=== PATIENT | female | born 1970 | race Caucasian/White ===

== ENCOUNTER 2023-10-17 10:27 | Inpatient (IN) | payer OTHER ==
[~2023-10-17] VITALS: Ht 160 cm; Wt 59.0 kg
[2023-10-17 10:31] VITALS: BP 127/78; PULSE 100; RESP 18; TEMP 98.4; O2SAT 100
[2023-10-17] MEDS: NACL 0.9% 1,000 ML IV ONE (10:45)
[2023-10-17] MEDS: KETOROLAC 30 MG/ML VIAL IVP ONE (10:47)
[2023-10-17 11:04] LABS: BASOPHILS % (AUTO) 0.1 % (0.0-2.0); HEMATOCRIT 42.7 % (36-48); HEMOGLOBIN 14.2 g/dL (12.0-16.0); LYMPHOCYTES # (AUTO) 0.7 K/uL (2.5-16.5); MEAN CORPUSCULAR HEMOGLOBIN 28 pg (27-31); MEAN CORPUSCULAR HGB CONC 33 g/dL (33-37); MEAN CORPUSCULAR VOLUME 85.1 fL (80-94); MONOCYTES # (AUTO) 0.4 K/uL (0.8-1.0); MONOCYTES % (AUTO) 3.2 % (1.7-9.3); NEUTROPHILS # (AUTO) 10.8 K/uL (1.8-7.7); NEUTROPHILS % (AUTO) 90.7 % (42.2-75.2); PLATELET COUNT (AUTO) 345 K/uL (140-450); RED BLOOD CELL COUNT(AUTO) 5.02 MIL/uL (4.20-5.40); RED CELL DISTRIBUTION WIDTH 14.4 % (11.6-13.7); WHITE BLOOD COUNT (AUTO) 11.9 K/uL (4.8-10.8)
[2023-10-17 11:16] LABS: ANION GAP 20.7 (8-16); CALCIUM 9.3 mg/dL (8.5-10.1); CARBON DIOXIDE 20.4 mmol/L (21-32); CREATININE 1.1 mg/dL (0.6-1.3); POTASSIUM 4.1 mmol/L (3.5-5.1)
[2023-10-17 11:26] LABS: ALANINE AMINOTRANSFERASE 24 U/L (12-78); ALBUMIN 3.8 g/dL (3.4-5.0); ALKALINE PHOSPHATASE 81 U/L (50-136); ASPARTATE AMINOTRANSFERASE 15 U/L (15-37); BILIRUBIN,DIRECT 0.2 mg/dL (0.0-0.3); LIPASE 22 U/L (16-77); TOTAL BILIRUBIN 1.3 mg/dL (0.0-1.0); TOTAL PROTEIN, SERUM 8.8 g/dL (6.4-8.2)
[2023-10-17 11:34] LABS: APPEARANCE,URINE CLEAR (CLEAR); BILIRUBIN,URINE NEGATIVE (NEGATIVE); BLOOD, URINE TRACE-I (NEGATIVE); COLOR,URINE YELLOW (YELLOW); LEUKOCYTE ESTERASE ,URINE NEGATIVE (NEGATIVE); NITRITE, URINE NEGATIVE (NEGATIVE); PROTEIN,URINE TRACE (NEGATIVE); UGLUCOSE 3+ (NEGATIVE); UROBILINOGEN,URINE 0.2 EU/dL (0.2 - 1)
[2023-10-17 12:05] LABS: BACTERIA,URINE FEW /HPF (None Seen); MUCUS,URINE 1+ /LPF (None Seen); RBC,URINE 0-5 /HPF (0-5); SQUAMOUS EPITHELIAL CELL,UR FEW /LPF (0-3 (FEW)); WBC,URINE 0-5 /HPF (0-5)
[2023-10-17] MEDS: ONDANSETRON 4 MG/2 ML VIAL IVP ONE (14:52)
[2023-10-17] MEDS ORDERED: SEMA1PEN3 SUBQ (15:05)
[2023-10-17] MEDS ORDERED: METF-352 PO (15:19)
[2023-10-17] MEDS ORDERED: INSULIN LANTUS 100 UNITS/ML 10 ML VIAL SUBQ SCH ×2 (17:26→17:50)
[2023-10-17 17:36] LABS: ANION GAP 16.2 (8-16); CALCIUM 8.2 mg/dL (8.5-10.1); CARBON DIOXIDE 21.3 mmol/L (21-32); CREATININE 0.6 mg/dL (0.6-1.3); POTASSIUM 3.5 mmol/L (3.5-5.1)
[2023-10-17] MEDS ORDERED: DEXTROSE 50% 50 ML SYR IVP PRN (17:50)
[2023-10-17] MEDS: NACL 0.9% 500 ML IV STA (17:56)
[2023-10-17] MEDS: BLOOD GLUCOSE MONITORING 1 DEV DEV FS SCH (18:08)
[2023-10-17] MEDS ORDERED: LACTULOSE 20 GM/30 ML UDC PO PRN (18:30)
[2023-10-17] MEDS ORDERED: HYDROcodone/APAP 5/325 MG 1 TAB TAB PO PRN (18:30)
[2023-10-17] MEDS ORDERED: ACETAMINOPHEN 325 MG TAB PO PRN ×2 (18:30→18:45)
[2023-10-17 19:59] LABS: ANION GAP 17.4 (8-16); CARBON DIOXIDE 20.9 mmol/L (21-32); POTASSIUM 3.3 mmol/L (3.5-5.1)
[2023-10-17 20:00] LABS: CALCIUM 8.1 mg/dL (8.5-10.1); CREATININE 0.6 mg/dL (0.6-1.3)
[2023-10-17] MEDS: SENNA 8.6 MG TAB PO SCH (21:41)
[2023-10-17] MEDS: DOCUSATE SODIUM 100 MG GELCAP PO SCH (21:41)
[2023-10-17] MEDS: LOSARTAN 25 MG TAB PO SCH (21:42)
[2023-10-17 22:05] VITALS: PULSE 95; RESP 18; O2SAT 96
[2023-10-17] MEDS: POTASSIUM CHL 20 MEQ/NACL 0.9% 1,000 ML IV ONE (22:29)
[2023-10-17] MEDS: ONDANSETRON 4 MG/2 ML VIAL IVP PRN (22:44)
[2023-10-17] MEDS: MORPHINE SULFATE 2 MG/ML SYR IVP PRN (22:45)
[2023-10-18] VITALS: BP 139/68; PULSE 95; RESP 18; TEMP 97.3; O2SAT 96
[2023-10-18] MEDS: INSULIN LISPRO SLIDING SCALE 100 UNITS/ML VIAL SUBQ PRN (00:05)
[2023-10-18 06:33] LABS: BASOPHILS % (AUTO) 0.1 % (0.0-2.0); HEMATOCRIT 39.2 % (36-48); LYMPHOCYTES % (AUTO) 7.6 % (20.5-51.1); MEAN CORPUSCULAR HEMOGLOBIN 28 pg (27-31); MEAN CORPUSCULAR HGB CONC 33 g/dL (33-37); MEAN CORPUSCULAR VOLUME 84.8 fL (80-94); MONOCYTES # (AUTO) 0.6 K/uL (0.8-1.0); MONOCYTES % (AUTO) 4.9 % (1.7-9.3); NEUTROPHILS # (AUTO) 10.9 K/uL (1.8-7.7); PLATELET COUNT (AUTO) 322 K/uL (140-450); RED BLOOD CELL COUNT(AUTO) 4.62 MIL/uL (4.20-5.40); RED CELL DISTRIBUTION WIDTH 14.5 % (11.6-13.7); WHITE BLOOD COUNT (AUTO) 12.5 K/uL (4.8-10.8)
[2023-10-18 06:54] LABS: CARBON DIOXIDE 23.3 mmol/L (21-32); CREATININE 0.6 mg/dL (0.6-1.3); PHOSPHORUS 1.9 mg/dL (2.5-4.9); POTASSIUM 3.3 mmol/L (3.5-5.1); TOTAL PROTEIN, SERUM 7.2 g/dL (6.4-8.2)
[2023-10-18 07:21] LABS: NEUTROPHILS % (AUTO) 87.4 % (42.2-75.2)
[2023-10-18] MEDS: BLOOD GLUCOSE MONITORING 1 DEV DEV FS SCH (07:45)
[2023-10-18] MEDS ORDERED: INSULIN LANTUS 100 UNITS/ML 10 ML VIAL SUBQ SCH ×3 (07:45→21:00)
[2023-10-18 08:00] VITALS: BP 139/74; PULSE 93; RESP 18; TEMP 97.3; O2SAT 98
[2023-10-18] MEDS: POTASSIUM CHLORIDE 10 MEQ TABER PO PRN (08:23)
[2023-10-18] MEDS: metFORMIN 500 MG TAB PO SCH (08:23)
[2023-10-18] MEDS: CALCIUM CARBONATE 500 MG TAB.CHEW PO SCH (08:27)
[2023-10-18 10:20] LABS: APPEARANCE,URINE CLEAR (CLEAR); BILIRUBIN,URINE NEGATIVE (NEGATIVE); BLOOD, URINE NEGATIVE (NEGATIVE); COLOR,URINE YELLOW (YELLOW); LEUKOCYTE ESTERASE ,URINE NEGATIVE (NEGATIVE); NITRITE, URINE NEGATIVE (NEGATIVE); PROTEIN,URINE TRACE (NEGATIVE); UGLUCOSE 1+ (NEGATIVE); UROBILINOGEN,URINE 0.2 EU/dL (0.2 - 1)
[2023-10-18] MEDS: SODIUM PHOS / POTASSIUM PHOS 1 PKT PDR PO SCH (11:04)
[2023-10-18] MEDS ORDERED: INSU100S22 SUBQ (12:15)
[2023-10-18] MEDS ORDERED: LOSA-269 PO (12:15)
[2023-10-18] MEDS ORDERED: PHOS1PDR4 PO (12:15)
[2023-10-18] MEDS ORDERED: CALC200T38 PO (12:15)
[2023-10-18] MEDS ORDERED: METO-485 PO (14:21)
== END 2023-10-18 13:20 | disposition home or self-care (01) | DRG 638 ==
LOC: MED 10:27 → MMU 18:30 → MTU 21:23
PROVIDERS: ADMIT Internal Medicine; ATTEND Internal Medicine
DX: E11.10 Type 2 diabetes mellitus with ketoacidosis without coma (principal); E44.0 Moderate protein-calorie malnutrition; R65.10 Systemic inflammatory response syndrome (SIRS) of non-infectious origin without acute organ dysfunction; Z88.2 Allergy status to sulfonamides; Z79.84 Long term (current) use of oral hypoglycemic drugs; Z68.23 Body mass index [BMI] 23.0-23.9, adult
CPT/HCPCS: 36415; 71045; 80048; 80053; 80076; 81001; 81003; 82009; 82948; 83036; 83690; 83735; 84100; 84484; 85025; 87081; 93005; J0696; J1815; J1885; J2270; J2405; J7030; J7060